=== PATIENT | male | born 1975 | race African-American/Black ===

== ENCOUNTER 2019-04-17 18:19 | Inpatient (IN) | payer OTHER ==
[2019-04-17 20:17] VITALS: BMI 29.6
--- NOTE | 2019-04-18 00:33 | HP ---
CIWA Score Nausea/Vomitin-Mild Nausea/No Vomiting Muscle Tremors: 4-Moderate,w/Arms Extend Anxiety: 4-Mod. Anxious/Guarded Agitation: 4-Moderately Restless Paroxysmal Sweats: 3 Orientation: 0-Oriented Tacttile Disturbances: 2-Mild Itch/Numbness/Burn Auditory Disturbances: 0-None Visual Disturbances: 2-Mild Sensitivity Headache: 1-Very Mild CIWA-Ar Total Score: 21 - Admission Criteria OASAS Guidelines: Admission for Medically Managed Detox: Requires at least one of the followin. CIWA greater than 12 2. Seizures within the past 24 hours 3. Delirium tremens within the past 24 hours 4. Hallucinations within the past 24 hours 5. Acute intervention needed for co occurring medical disorder 6. Acute intervention needed for co occurring psychiatric disorder 7. Severe withdrawal that cannot be handled at a lower level of care (continued vomiting, continued diarrhea, abnormal vital signs) requiring intravenous medication and/or fluids 8. Patient presents the following: CIWA greater than 12 Admission Criteria Met: Admission criteria met Admission ROS S - [facility] Chief Complaint: C/O WITHDRAWAL SX'S. SEEKING DETOX TXMENT Allergies/Adverse Reactions: Allergies Allergy/AdvReac Type Severity Reaction Status Date / Time No Known Allergies Allergy Verified 04/17/19 19:52 History of Present Illness: 43 Y.O. MALE WITH HX/O ALCOHOLISM HERE FOR DETOX. CLIENT IS REFERRED BY [facility] after presenting there with c/o withdrawal sx's. he was given ativan and stabilized. He is now here with ciwa of 19. he reports drinking daily. last drink 2 days ago. +hx/o seizures/blackouts. Denies si/hi/avh. Last seizure 2 years ago. Reports longest clean time 4 years while incarcerated. domiciled, disabled- denies legals Exam Limitations: Physical Impairment (r side hemiparesis) - Ebola screening Have you traveled outside of the country in the last 21 days: No (N) Have you had contact with anyone from an Ebola affected area: No Do you have a fever: No - Review of Systems Constitutional: Chills, Malaise, Night Sweats, Changes in sleep EENT: reports: No Symptoms Reported Respiratory: reports: No Symptoms reported Cardiac: reports: No Symptoms Reported GI: reports: Nausea, Poor Fluid Intake : reports: Urgency Musculoskeletal: reports: No Symptoms Reported Integumentary: reports: No Symptoms Reported Neuro: reports: Headache, Seizure, Tremors (felt), Weakness (r sided), Unsteady Gait Endocrine: reports: No Symptoms Reported Hematology: reports: No Symptoms Reported Psychiatric: reports: Orientated x3, Anxious, Depressed Other Systems: Reviewed and Negative Patient History - Patient Medical History Hx Anemia: No Hx Asthma: No Hx Chronic Obstructive Pulmonary Disease (COPD): No Hx Cancer: No Hx Cardiac Disorders: No Hx Congestive Heart Failure: No Hx Hypertension: Yes Hx Hypercholesterolemia: Yes Hx Pacemaker: No HX Cerebrovascular Accident: Yes (09/2018) Hx Seizures: No Hx Dementia: No Hx Diabetes: No Hx Gastrointestinal Disorders: No Hx Liver Disease: No Hx Genitourinary Disorders: No Hx Sexually Transmitted Disorders: No Hx Renal Disease (ESRD): No Hx Thyroid Disease: No Hx Human Immunodeficiency Virus (HIV): No Hx Hepatitis C: No Hx Depression: Yes Hx Suicide Attempt: No Hx Bipolar Disorder: No Hx Schizophrenia: No - Patient Surgical History Past Surgical History: Yes - PPD History Previous Implant?: Yes Documented Results: Negative w/o proof Implanted On Prior R Admission?: No PPD to be Administered?: Yes - Smoking Cessation Smoking history: Current every day smoker Have you smoked in the past 12 months: Yes Aproximately how many cigarettes per day: 20 Cigars Per Day: 0 Hx Chewing Tobacco Use: Yes Initiated information on smoking cessation: Yes 'Breaking Loose' booklet given: 04/18/19 - Substance & Tx. History Hx Alcohol Use: Yes Substance Use Type: None, Alcohol Hx Substance Use Treatment: Yes ([facility]) - Substances abused Alcohol Substance route: Oral Frequency: Daily Amount used: 1 pint to a liter Age of first use: 14 Date of last use: 04/16/19 Family Disease History - Family Disease History Family Disease History: Other: Father (alcoholism- ), Brother ( alcoholism- , stroke, mi) Admission Physical Exam S - Vital Signs Vital Signs: Vital Signs - 24 hr 04/17/19 19:52 Temperature 98.3 F Pulse Rate 123 H Respiratory 16 Rate Blood Pressure 165/101 H - Physical General Appearance: Yes: Mild Distress HEENTM: Yes: EOMI, Normocephalic, Normal Voice, GABBY, Pharynx Normal, Other ( poor dentition) Respiratory: Yes: Chest Non-Tender, Lungs Clear, Normal Breath Sounds, No Respiratory Distress, No Accessory Muscle Use Neck: Yes: No masses,lesions,Nodules, Supple, Trachea in good position Breast: Yes: Breast Exam Deferred (r) Cardiology: Yes: Regular Rhythm (rr), Regular Rate (rrrrrrrrrrrrrrrrrrrrrrrrr), S1, S2 Abdominal: Yes: Normal Bowel Sounds, Non Tender, Soft Genitourinary: Yes: Within Normal Limits Back: Yes: Normal Inspection Musculoskeletal: Yes: Muscle weakness (r side hemiparesis) Extremities: Yes: Other (r sided weakness upper/lower extemities) Neurological: Yes: Fully Oriented, Alert, Depressed Affect Integumentary: Yes: Dry, Warm Lymphatic: Yes: Within Normal Limits - Diagnostic (1) Alcohol dependence with uncomplicated withdrawal Status: Acute (2) Cerebrovascular accident (CVA) with right hemiparesis Status: Chronic (3) Nicotine dependence Status: Chronic Qualifiers: Nicotine product type: cigarettes Substance use status: uncomplicated Qualified Code(s): F17.210 - Nicotine dependence, cigarettes, uncomplicated (4) Nicotine dependence Status: Acute (5) HLD (hyperlipidemia) Status: Acute (6) Substance induced mood disorder Status: Suspected (7) HTN (hypertension) Status: Chronic Qualifiers: Hypertension type: essential hypertension Qualified Code(s): I10 - Essential (primary) hypertension Cleared for Admission S - Detox or Rehab [facility] Level of Care: Medically Managed (ATIVAN) Claeared for Rehab Admission: No Breathalyzer - Breathalyzer Breathalyzer: 0 Urine Drug Screen - Test Device Lot number: [id number] Expiration date: 01/04/21 - Control Is test valid?: Yes - Results Drug screen NEGATIVE: No Urine drug screen results: OXY-Oxycodone, BZO-Benzodiazepines Inpatient Rehab Admission - Rehab Decision to Admit Inpatient rehab admission?: No
[2019-04-18] MEDS ORDERED: P-EPHED 60MG/TRIPROLIDI 2.5MG TABLET PO PRN (00:52)
[2019-04-18] MEDS ORDERED: ACETAMINOPHEN 325 MG TABLET (FP) PO PRN ×2 (00:52)
[2019-04-18] MEDS ORDERED: IBUPROFEN 400 MG TABLET (FP) PO PRN (00:52)
[2019-04-18] MEDS ORDERED: DICYCLOMINE HCL 10 MG CAPSULE PO PRN (00:52)
[2019-04-18] MEDS ORDERED: guaiFENesin 200 MG/10 ML 10 ML UNIT-DOSE CUPS PO PRN (00:52)
[2019-04-18] MEDS ORDERED: METHOCARBAMOL 500 MG TABLET PO PRN (00:52)
[2019-04-18] MEDS ORDERED: MENTHOL/PHENOL 1 EACH UD MM PRN (00:52)
[2019-04-18] MEDS ORDERED: MAGNESIUM HYDROX 2400MG/30ML ORAL SUSPENSION 30 ML CUP PO PRN (00:52)
[2019-04-18] MEDS ORDERED: NICOTINE POLACRILEX 2 MG GUM BUC PRN (00:52)
[2019-04-18] MEDS ORDERED: MAGNESIUM CITRATE 300 ML BOTTLE PO PRN (00:52)
[2019-04-18] MEDS ORDERED: ONDANSETRON *ODT* 4 MG TABLET SL PRN (00:52)
[2019-04-18] MEDS ORDERED: hydrOXYzine PAMOATE 25 MG CAPSULE (FP) PO PRN (00:52)
[2019-04-18] MEDS ORDERED: MAG HYDROX/AL HYDROX/SIMETH 30 ML UNIT-DOSE CUP PO PRN (00:52)
[2019-04-18] MEDS: LORazepam 1 MG TABLET PO PRN (03:03)
[2019-04-18] MEDS: BACLOFEN 10 MG TABLET (FP) PO SCH ×3 (05:22→22:54)
[2019-04-18] MEDS: LORazepam 2 MG TABLET PO SCH ×4 (05:23→22:54)
--- NOTE | 2019-04-18 08:44 | EKG ---
Test Reason : Blood Pressure : / mmHG Vent. Rate : 082 BPM Atrial Rate : 082 BPM P-R Int : 140 ms QRS Dur : 086 ms QT Int : 406 ms P-R-T Axes : 006 070 -61 degrees QTc Int : 474 ms NORMAL SINUS RHYTHM VOLTAGE CRITERIA FOR LEFT VENTRICULAR HYPERTROPHY ST ELEVATION, CONSIDER EARLY REPOLARIZATION, PERICARDITIS, OR INJURY MARKED T-WAVE ABNORMALITY, CONSIDER INFEROLATERAL ISCHEMIA PROLONGED QT ABNORMAL ECG NO PREVIOUS ECGS AVAILABLE Confirmed by MARITA HERNANDEZ MD ([id number]) on 04/18/2019 8:44:46 AM Referred By: CHRISTI Confirmed By:MARITA HERNANDEZ MD
[2019-04-18] MEDS: NICOTINE 14 MG/24 HOURS TOPICAL PATCH TD SCH (11:36)
[2019-04-18] MEDS: PRENATAL VITAMINS W/ FOLIC ACID TABLET (FP) PO SCH (11:36)
[2019-04-18] MEDS: CLOPIDOGREL BISULFATE 75 MG TABLET (FP) PO SCH (11:36)
[2019-04-18] MEDS: ASPIRIN COATED 81 MG TABLET.EC PO SCH (11:36)
[2019-04-18] MEDS: NIFEdipine E.R 60 MG TABLET (UD) PO SCH (11:37)
--- NOTE | 2019-04-18 15:51 | PN ---
[facility] CIWA - CIWA Score Nausea/Vomitin-No Nausea/No Vomiting Muscle Tremors: 3 Anxiety: 4-Mod. Anxious/Guarded Agitation: 0-Normal Activity Paroxysmal Sweats: No Perspiration Orientation: 2-Disoriented Date<2 days Tacttile Disturbances: 2-Mild Itch/Numbness/Burn Auditory Disturbances: 2-Mild Harshness/Frighten Visual Disturbances: 0-None Headache: 0-None Present CIWA-Ar Total Score: 13 S Progress Note (SOAP) Subjective: Anxious, Tremors, Fatigue, Interrupted Sleep. Objective: PATIENT A & O X 2 (UNCERTAIN ABOUT CURRENT DAY / DATE). IN NO ACUTE DISTRESS. 04/18/19 15:49 Vital Signs Temperature 97.0 F L 04/18/19 13:57 Pulse Rate 97 H 04/18/19 13:57 Respiratory Rate 18 04/18/19 13:57 Blood Pressure 152/92 04/18/19 13:57 O2 Sat by Pulse Oximetry (%) DETOX ADMISSION LAB RESULTS PENDING. 04/18/19 15:49 Assessment: 04/18/19 15:50 WITHDRAWAL SYMPTOMS. Plan: CONTINUE DETOX. CONTINUE TO MONITOR BLOOD PRESSURE.
--- NOTE | 2019-04-18 16:14 | PN ---
S Progress Note Note: RESULTS OF REPEAT ECG NOTED. ASIDE FROM HYPERTENSION AND HISTORY OF CVA IN 2018 , PATIENT DENIES KJNOWN HISTROOY OF CARDIOVASCULAR DISEASE. PATIENT DENIES CHEST PAIN, DIZZINESS, AND SOB. PATIENT ADVISED TO FOLLOW-UP WITH [employer] AFTER DISCHARGE FROM DETOX FOR GENERAL MEDICAL ASSESSMENT AND FOR ABNORMALITIES NOTED ON ECG. PATIENT VERBALIZED UNDERSTANDING OF RECOMMENDATION. Stevie CHAMBERS NP
[2019-04-18] MEDS: BISMUTH SUBSALICYLATE 524 MG/30 ML UD PO PRN (20:57)
[2019-04-18] MEDS ORDERED: SENNOSIDES 8.6MG TABLET (FP) PO PRN (22:00)
[2019-04-18] MEDS ORDERED: MELATONIN 5 MG TABLETS PO PRN (22:00)
[2019-04-18] MEDS: ATORVASTATIN CA 80 MG TABLET (FP) PO SCH (22:54)
[2019-04-18] MEDS: THIAMINE HCL 100 MG TABLET (FP) PO SCH (22:54)
[2019-04-19] MEDS: BACLOFEN 10 MG TABLET (FP) PO SCH ×3 (06:10→22:03)
[2019-04-19] MEDS: LORazepam 1 MG TABLET PO SCH ×4 (06:11→22:03)
[2019-04-19 10:04] LABS: ALBUMIN 3.8 g/dl (3.4-5.0); BILIRUBIN,TOTAL 0.6 mg/dL (0.2-1); BLOOD UREA NITROGEN 10.5 mg/dL (7-18); CREATININE 0.9 mg/dL (0.55-1.3); TOT PROT 6.8 g/dl (6.4-8.2)
[2019-04-19 10:08] LABS: HEMATOCRIT 39.9 % (35.4-49); HEMOGLOBIN 13.1 GM/dL (11.7-16.9); MCH 27.5 pg (25.7-33.7); MCHC 32.7 g/dl (32.0-35.9); MEAN CELL VOLUME 83.9 fl (80-96); MEAN PLT VOLUME 9.1 fl (7.5-11.1); RBC 4.76 M/mm3 (4.00-5.60); WHITE BLOOD COUNT 5.2 K/mm3 (4.0-10.0)
--- NOTE | 2019-04-19 10:15 | CONSULT ---
[facility] Psychiatric Consult - Data Date of interview: 04/19/19 Admission source: [facility] Identifying data: Patient is a 43 year old single male, without children, unemployed, domiciled, and is supported by [facility]. This is patient's first admission to detox at [facility]. Patient admitted to for alcohol dependence. Substance Abuse History: Smoking Cessation. Smoking history: Current every day smoker. Have you smoked in the past 12 months: Yes. Aproximately how many cigarettes per day: 20. Cigars Per Day: 0. Hx Chewing Tobacco Use: Yes. Initiated information on smoking cessation: Yes. - Substance & Tx. History. Hx Alcohol Use: Yes. Substance Use Type: None, Alcohol. Hx Substance Use Treatment: Yes ([facility]). - Substances abused. Alcohol. Substance route: Oral. Frequency: Daily. Amount used: 1 pint to a liter. Age of first use: 14. Date of last use: 04/16/19 Medical History: CVA (09/2018) r side hemiparesis Psychiatric History: Patient denies h/o psychiatric hospitalizations and suicide attempt. He reports seeing a psychiatrist at [facility] in 2017 but was noncompliant with his psychiatric appoinments because of his medical condition. Patient denies accepting medications despite external records displaying a prescription of Seroquel 50mg, Zoloft 50mg, and lexapro 10mg and 20mg in January and february 2019. No psychotropic medications noted for March or April. Patient reports having memory problems and is unable to recall h/o accepting psychotropic medications. At present, patient denies depressive symptoms. Physical/Sexual Abuse/Trauma History: denies. Mental Status Exam - Mental Status Exam Alert and Oriented to: Time, Place, Person Cognitive Function: Good Patient Appearance: Well Groomed Mood: Euthymic Affect: Appropriate Patient Behavior: Cooperative Speech Pattern: Clear Voice Loudness: Moderately Soft/Quiet Thought Process: Goal Oriented Thought Disorder: Not Present Hallucinations: Denies Suicidal Ideation: Denies Homicidal Ideation: Denies Insight/Judgement: Poor Sleep: Fair Appetite: Fair Muscle strength/Tone: Normal Gait/Station: Other (Patient ambulates with a cane. CVA in 20) Psychiatric Findings - Problem List ([place] 1, 2,3) (1) Alcohol dependence with uncomplicated withdrawal Current Visit: Yes Status: Acute (2) Nicotine dependence Current Visit: Yes Status: Acute - Initial Treatment Plan Initial Treatment Plan: Psychoeducation provided. Detoxification in progress. Observation.
[2019-04-19 10:21] LABS: PLATELET COUNT 154 K/MM3 (134-434)
[2019-04-19] MEDS: NIFEdipine E.R 60 MG TABLET (UD) PO SCH (10:53)
[2019-04-19] MEDS: ASPIRIN COATED 81 MG TABLET.EC PO SCH (10:53)
[2019-04-19] MEDS: CLOPIDOGREL BISULFATE 75 MG TABLET (FP) PO SCH (10:53)
[2019-04-19] MEDS: NICOTINE 14 MG/24 HOURS TOPICAL PATCH TD SCH (10:53)
[2019-04-19] MEDS: PRENATAL VITAMINS W/ FOLIC ACID TABLET (FP) PO SCH (10:53)
--- NOTE | 2019-04-19 11:49 | EKG ---
Test Reason : Blood Pressure : / mmHG Vent. Rate : 081 BPM Atrial Rate : 081 BPM P-R Int : 156 ms QRS Dur : 088 ms QT Int : 400 ms P-R-T Axes : 056 067 -66 degrees QTc Int : 464 ms NORMAL SINUS RHYTHM MINIMAL VOLTAGE CRITERIA FOR LVH, MAY BE NORMAL VARIANT ST ELEVATION, CONSIDER EARLY REPOLARIZATION, PERICARDITIS, OR INJURY T WAVE ABNORMALITY, CONSIDER INFEROLATERAL ISCHEMIA PROLONGED QT ABNORMAL ECG WHEN COMPARED WITH ECG OF 18-APR-2019 02:15, NO SIGNIFICANT CHANGE WAS FOUND Confirmed by BRANDON MARISCAL MD ([id number]) on 04/19/2019 11:48:54 AM Referred By: Confirmed By:BRANDON MARISCAL MD
[2019-04-19] MEDS ORDERED: PROCHLORPERAZINE MALEATE 5 MG TABLET PO PRN (13:01)
--- NOTE | 2019-04-19 13:37 | PN ---
[facility] CIWA - CIWA Score Nausea/Vomitin Muscle Tremors: None Anxiety: 4-Mod. Anxious/Guarded Agitation: 0-Normal Activity Paroxysmal Sweats: No Perspiration Orientation: 0-Oriented Tacttile Disturbances: 2-Mild Itch/Numbness/Burn Auditory Disturbances: 0-None Visual Disturbances: 2-Mild Sensitivity Headache: 0-None Present CIWA-Ar Total Score: 11 BHS Progress Note (SOAP) Subjective: Diarrhea, Nausea, Anxious. Objective: PATIENT A & O X 3. IN NO ACUTE DISTRESS. 04/19/19 13:35 Vital Signs Temperature 97.9 F 04/19/19 13:22 Pulse Rate 95 H 04/19/19 13:22 Respiratory Rate 18 04/19/19 13:22 Blood Pressure 145/95 04/19/19 13:22 O2 Sat by Pulse Oximetry (%) Laboratory Tests 04/19/19 04/19/19 04/19/19 07:00 07:00 07:00 WBC 5.2 RBC 4.76 Hgb 13.1 Hct 39.9 MCV 83.9 MCH 27.5 MCHC 32.7 RDW 15.0 Plt Count 154 MPV 9.1 Sodium 142 Potassium 4.0 Chloride 108 H Carbon Dioxide 28 Anion Gap 7 L BUN 10.5 Creatinine 0.9 Est GFR (CKD-EPI)AfAm 120.81 Est GFR (CKD-EPI)NonAf 104.24 Random Glucose 101 Calcium 9.0 Total Bilirubin 0.6 AST 40 H ALT 67 H Alkaline Phosphatase 77 Total Protein 6.8 Albumin 3.8 RPR Titer Nonreactive LABS NOTED. Assessment: 04/19/19 13:36 WITHDRAWAL SYMPTOMS. ELEVATED LIVER ENZYMES. 04/19/19 13:36 Plan: CONTINUE DETOX. INCREASE DIALY PO FLUID INTAKE. PRN COMPAZINE PO FOR NAUSEA. PRN PEPTO-BISMOL PO FOR DIARRHEA.
[2019-04-19] MEDS: LORazepam 1 MG TABLET PO PRN ×2 (13:58→19:03)
[2019-04-19 19:45] LABS: URINE APPEARANCE CLEAR; URINE BILIRUBIN NEGATIVE (NEGATIVE); URINE COLOR YELLOW; URINE GLUCOSE (UA) NEGATIVE (NEGATIVE); URINE KETONE NEGATIVE (NEGATIVE); URINE LEUK ESTERASE NEGATIVE (NEGATIVE); URINE NITRITE NEGATIVE (NEGATIVE); URINE PROTEIN NEGATIVE (NEGATIVE); URINE UROBILINOGEN 0.2 mg/dL (0.2-1.0)
[2019-04-19] MEDS: BISMUTH SUBSALICYLATE 524 MG/30 ML UD PO PRN (20:57)
[2019-04-19] MEDS: THIAMINE HCL 100 MG TABLET (FP) PO SCH (22:02)
[2019-04-19] MEDS: ATORVASTATIN CA 80 MG TABLET (FP) PO SCH (22:03)
[2019-04-20] MEDS ORDERED: LORazepam 0.5 MG TABLET PO PRN (05:00)
[2019-04-20] MEDS: BACLOFEN 10 MG TABLET (FP) PO SCH ×3 (05:42→22:10)
[2019-04-20] MEDS: LORazepam 0.5 MG TABLET PO SCH ×4 (05:42→22:10)
[2019-04-20] MEDS: PRENATAL VITAMINS W/ FOLIC ACID TABLET (FP) PO SCH (10:08)
[2019-04-20] MEDS: NIFEdipine E.R 60 MG TABLET (UD) PO SCH (10:08)
[2019-04-20] MEDS: CLOPIDOGREL BISULFATE 75 MG TABLET (FP) PO SCH (10:08)
[2019-04-20] MEDS: ASPIRIN COATED 81 MG TABLET.EC PO SCH (10:08)
[2019-04-20] MEDS: NICOTINE 14 MG/24 HOURS TOPICAL PATCH TD SCH (10:10)
[2019-04-20] MEDS ORDERED: NIFEdipine E.R. 30 MG TABLET (FP) PO ONE (15:30)
--- NOTE | 2019-04-20 15:32 | PN ---
S CIWA - CIWA Score Nausea/Vomitin Muscle Tremors: None Anxiety: 3 Agitation: 0-Normal Activity Paroxysmal Sweats: No Perspiration Orientation: 0-Oriented Tacttile Disturbances: 0-None Auditory Disturbances: 0-None Visual Disturbances: 2-Mild Sensitivity Headache: 0-None Present CIWA-Ar Total Score: 7 BHS Progress Note (SOAP) Subjective: Fatigue, Nausea (Mild), Anxious. Patient reports That Current withdrawal Detox Symptoms in General Have Been Gradually Subsiding in Severity with each Day of Detox. Objective: PATIENT A & O X 3, OBSERVED AMBULATING ON UNIT UNASSISTED. IN NO ACUTE DISTRESS. 04/20/19 15:28 Vital Signs Temperature 97.9 F 04/20/19 14:09 Pulse Rate 92 H 04/20/19 14:09 Respiratory Rate 18 04/20/19 14:09 Blood Pressure 183/91 H 04/20/19 14:09 O2 Sat by Pulse Oximetry (%) Laboratory Tests 04/19/19 04/19/19 04/19/19 07:00 07:00 07:00 WBC 5.2 RBC 4.76 Hgb 13.1 Hct 39.9 MCV 83.9 MCH 27.5 MCHC 32.7 RDW 15.0 Plt Count 154 MPV 9.1 Sodium 142 Potassium 4.0 Chloride 108 H Carbon Dioxide 28 Anion Gap 7 L BUN 10.5 Creatinine 0.9 Est GFR (CKD-EPI)AfAm 120.81 Est GFR (CKD-EPI)NonAf 104.24 Random Glucose 101 Calcium 9.0 Total Bilirubin 0.6 AST 40 H ALT 67 H Alkaline Phosphatase 77 Total Protein 6.8 Albumin 3.8 Urine Color Urine Appearance Urine pH Ur Specific [place] Urine Protein Urine Glucose (UA) Urine Ketones Urine Blood Urine Nitrite Urine Bilirubin Urine Urobilinogen Ur Leukocyte Esterase RPR Titer Nonreactive 04/19/19 15:00 WBC RBC Hgb Hct MCV MCH MCHC RDW Plt Count MPV Sodium Potassium Chloride Carbon Dioxide Anion Gap BUN Creatinine Est GFR (CKD-EPI)AfAm Est GFR (CKD-EPI)NonAf Random Glucose Calcium Total Bilirubin AST ALT Alkaline Phosphatase Total Protein Albumin Urine Color Yellow Urine Appearance Clear Urine pH 8.0 Ur Specific [place] 1.011 Urine Protein Negative Urine Glucose (UA) Negative Urine Ketones Negative Urine Blood Negative Urine Nitrite Negative Urine Bilirubin Negative Urine Urobilinogen 0.2 Ur Leukocyte Esterase Negative RPR Titer LABS NOTED. Assessment: 04/20/19 15:30 WITHDRAWAL SYMPTOMS. HYPERTENSION. ELEVATED AST AND ALT LEVELS. Plan: CONTINUE DETOX. ADDITIONAL 30 MG PO OF NIFEDIPINE ER (PATIENT CURRENTLY PRESCRIBED 60 MG PO DAILY) ORDERED FOR ELEVATED BP ON SEVERAL READINGS DESPITE TREATMENT. PATIENT SCHEDULED FOR D/C TOMORROW AM.
[2019-04-20] MEDS: THIAMINE HCL 100 MG TABLET (FP) PO SCH (22:10)
[2019-04-20] MEDS: ATORVASTATIN CA 80 MG TABLET (FP) PO SCH (22:10)
[2019-04-21] MEDS: LORazepam 0.5 MG TABLET PO SCH (05:45)
[2019-04-21] MEDS: BACLOFEN 10 MG TABLET (FP) PO SCH (05:45)
[2019-04-21 09:42] VITALS: BP 128/86; PULSE 101; TEMP 97.3
[2019-04-21] MEDS: NIFEdipine E.R 60 MG TABLET (UD) PO SCH (10:00)
[2019-04-21] MEDS: PRENATAL VITAMINS W/ FOLIC ACID TABLET (FP) PO SCH (10:00)
[2019-04-21] MEDS: ASPIRIN COATED 81 MG TABLET.EC PO SCH (10:00)
[2019-04-21] MEDS: CLOPIDOGREL BISULFATE 75 MG TABLET (FP) PO SCH (10:00)
[2019-04-21] MEDS: NICOTINE 14 MG/24 HOURS TOPICAL PATCH TD SCH (10:02)
--- NOTE | 2019-04-21 13:45 | DS ---
[facility] Detox Discharge Summary Admission Date: 04/18/19 Discharge Date: 04/21/19 - History Present History: Alcohol Dependence Additional Comments: Pt is medically cleared and is discharged home, pt completed his detox protocol. Pt is instructed to followup with his pmd and also followup with [facility] outpatient program. Pt verbalized understanding. Pt is AOX3, in no respiratory distress. Pertinent Past History: H/O HTN, dyslipidemia, and alcohol use disorder. - Physical Exam Results Vital Signs: Vital Signs Temperature 97.3 F L 04/21/19 09:41 Pulse Rate 101 H 04/21/19 09:41 Respiratory Rate 18 04/21/19 09:41 Blood Pressure 128/86 04/21/19 09:41 O2 Sat by Pulse Oximetry (%) Lab Results WBC 5.2 K/mm3 (4.0-10.0) 04/19/19 07:00 RBC 4.76 M/mm3 (4.00-5.60) 04/19/19 07:00 Hgb 13.1 GM/dL (11.7-16.9) 04/19/19 07:00 Hct 39.9 % (35.4-49) 04/19/19 07:00 MCV 83.9 fl (80-96) 04/19/19 07:00 MCHC 32.7 g/dl (32.0-35.9) 04/19/19 07:00 RDW 15.0 % (11.9-15.9) 04/19/19 07:00 Plt Count 154 K/MM3 (134-434) 04/19/19 07:00 Sodium 142 mmol/L (136-145) 04/19/19 07:00 Potassium 4.0 mmol/L (3.5-5.1) 04/19/19 07:00 Chloride 108 mmol/L (98-107) H 04/19/19 07:00 Carbon Dioxide 28 mmol/L (21-32) 04/19/19 07:00 Anion Gap 7 MMOL/L (8-16) L 04/19/19 07:00 BUN 10.5 mg/dL (7-18) 04/19/19 07:00 Creatinine 0.9 mg/dL (0.55-1.3) 04/19/19 07:00 Random Glucose 101 mg/dL (74-106) 04/19/19 07:00 Calcium 9.0 mg/dL (8.5-10.1) 04/19/19 07:00 Labs noted. Pertinent Admission Physical Exam Findings: withdrawal symptoms. - Treatment Hospital Course: Detox Protocol Followed, Detoxed Safely, Responded well, Discharged Condition Good - Medication Discharge Medications: Ambulatory Orders Aspirin [Aspirin EC] 81 mg PO DAILY 04/17/19 Atorvastatin Ca [Lipitor] 80 mg PO HS 04/17/19 Baclofen 10 mg PO TID 04/17/19 Clopidogrel Bisulfate [Clopidogrel] 75 mg PO DAILY 04/17/19 Folic Acid 1 mg PO DAILY 04/17/19 Nifedipine ER [Procardia XL -] 60 mg PO DAILY 04/17/19 Sennosides [Senna] 8.6 mg PO HS PRN 04/17/19 Thiamine HCl [Vitamin B1 -] 1 tablet PO DAILY 04/17/19 - Diagnosis (1) Alcohol dependence with uncomplicated withdrawal Status: Acute (2) Cerebrovascular accident (CVA) with right hemiparesis Status: Acute (3) HTN (hypertension) Status: Acute (4) Nicotine dependence Status: Acute - AMA Did Patient Leave Against Medical Advice: No
== END 2019-04-21 10:08 | disposition home or self-care (01) | DRG 775 ==
LOC: YASAS 18:19 → Y3N 04-18 01:53
PROVIDERS: ADMIT Surgery; ATTEND Surgery
PROC: HZ2ZZZZ Detoxification Services for Substance Abuse Treatment (ICD-10-PCS; principal; 2019-04-18)
DX: F10.230 Alcohol dependence with withdrawal, uncomplicated (principal); F17.210 Nicotine dependence, cigarettes, uncomplicated; I10 Essential (primary) hypertension; E78.5 Hyperlipidemia, unspecified; I69.351 Hemiplegia and hemiparesis following cerebral infarction affecting right dominant side; R74.0 Nonspecific elevation of levels of transaminase and lactic acid dehydrogenase [LDH]; R94.5 Abnormal results of liver function studies
CPT/HCPCS: 36415; 80053; 81003; 85027; 86593; 93005; 93010; J0475